=== PATIENT | female | born 2000 | race African-American/Black ===

== ENCOUNTER 2020-12-17 20:36 | Emergency (ER) | payer BC, OTHER ==
[~2020-12-17] VITALS: Ht 157.5 cm; Wt 54.4 kg
[2020-12-17] MEDS ORDERED: AZITHROMYCIN250 MG PO (20:57)
== END 2020-12-17 21:05 | disposition home or self-care (01) ==
LOC: ER 20:56
DX: A28.1 Cat-scratch disease (principal); R50.9 Fever, unspecified; M54.2 Cervicalgia; F17.210 Nicotine dependence, cigarettes, uncomplicated
CPT/HCPCS: 99282

== ENCOUNTER 2021-01-06 16:45 | Emergency (ER) | payer BC, OTHER ==
[~2021-01-06] VITALS: Ht 157.5 cm; Wt 54.4 kg
[~2021-01-06 16:45] MED LIST: AZITHROMYCIN250 MG PO
[2021-01-06] MEDS ORDERED: DONNATAL/LIDOCAINE/MAALOX 30 ML SUSP PO ONE (17:30)
[2021-01-06] MEDS ORDERED: MAGNESIUM/ALUMINUM/SIMETHICONE 30 ML UDC PO ONE (17:45)
[2021-01-06] MEDS ORDERED: LIDOCAINE VISC 2% SOLN 15 ML UDC PO ONE (17:45)
[2021-01-06] MEDS ORDERED: BELLADONNA ALK/PHENOBARBITAL 5 ML UDC PO ONE (17:45)
[2021-01-06 17:49] LABS: CLARITY,URINE SL CLOUDY (CLEAR); COLOR,URINE STRAW (YELLOW); KETONES,URINE TRACE (NEGATIVE); LEUKOCYTE ESTERASE ,URINE NEGATIVE (NEGATIVE); NITRITE,URINE NEGATIVE (NEGATIVE); PROTEIN,URINE DIPSTICK NEGATIVE (NEGATIVE); URINE UROBILINOGEN 0.2 mg/dL (0.2 - 1)
[2021-01-06 18:12] LABS: BACTERIA,URINE FEW /HPF; EPITHELIAL CELLS,URINE FEW /LPF; MUCUS,URINE MODERATE (RARE); WBC,URINE (MAN) 0-5 /HPF (0-5)
[2021-01-06 20:11] VITALS: BP 112/81
== END 2021-01-06 20:13 | disposition home or self-care (01) ==
LOC: ER 17:26
DX: O26.91 Pregnancy related conditions, unspecified, first trimester (principal); R10.13 Epigastric pain
CPT/HCPCS: 76705; 81001; 99283